=== PATIENT | male | born 1985 | race Caucasian/White ===

== ENCOUNTER 2017-10-18 18:21 | Emergency (ER) | payer OTHER ==
[~2017-10-18] VITALS: Ht 188 cm; Wt 99.8 kg
[~2017-10-18 18:21] MED LIST: ACETAMINOPHEN-1 EAC1 PO; AUGMENTIN 875875 MG PO; ERY-TAB500 MG PO; LIDOCAINE VISC100 M1 SWISH&SPIT; NOHOMEMEDICATIONS
[2017-10-18] MEDS ORDERED: TRAMADOL 50 MG50 MG PO (19:33)
[2017-10-18] MEDS ORDERED: IBUPROFEN 800800 M1 PO (19:33)
[2017-10-18] MEDS ORDERED: PERIDEX 0.12%473 M1 PO (19:33)
[2017-10-18] MEDS ORDERED: AMOXICILLIN 50500 MG PO (19:33)
[2017-10-18 19:42] VITALS: BP 144/80
== END 2017-10-18 19:43 | disposition home or self-care (01) ==
LOC: M.ERS 18:21
DX: K02.9 Dental caries, unspecified (principal); K05.10 Chronic gingivitis, plaque induced; F17.210 Nicotine dependence, cigarettes, uncomplicated; F10.20 Alcohol dependence, uncomplicated